=== PATIENT | female | born 2000 | race Caucasian/White ===

== ENCOUNTER 2019-01-05 15:39 | Emergency (ER) | payer OTHER ==
[~2019-01-05] VITALS: Ht 172.7 cm; Wt 99.3 kg
[2019-01-05] MEDS ORDERED: FAMOTIDINE 20 MG (PEPCID) TABLET PO STA (16:13)
[2019-01-05] MEDS ORDERED: LIDOCAINE 2% VISCOUS 15 ML UDC PO ONE (16:15)
[2019-01-05] MEDS ORDERED: ANTACID SUSP 30 ML UDC (MYLANTA) PO ONE (16:15)
--- NOTE | 2019-01-05 16:18 | ED Abdominal Pain ---
General Chief Complaint: Abdominal/GI Problems Stated Complaint: ABD PAIN Nursing Triage Note: pt arrived to ED with c/o abd cramping that started today before noon. Pt states she experiences cold chills while having the cramps. Pt has had a regular BM for the last week that is hard. Pt states the pain just continues to get worse Sepsis Screen: No Definite Risk Source of Information: Patient Exam Limitations: No Limitations History of Present Illness Date Seen by Provider: Jan 05, 2019 Time Seen by Provider: 15:59 Initial Comments Patient presents to ER by private conveyance with chief complaint of abdominal pain in the epigastric region described as cramping intermittent going on since about noon today, 4 hours ago. She has not tried taking anything for. History of GERD or gastritis. No history of EGD. She had a bowel movement earlier today that was normal formed. No nausea fever or sweats. She was at work and was complaining very bad about it and he insisted that she would get checked out. No history of abdominal surgeries, endometriosis. She doesn't history of PCO S and quit taking her metformin about a year ago because of side effects. She is not taking any medicines now nor she followed up with a primary care doctor for the past year. The pain started before eating. Her last period was in September. She has an Mirena IUD. Allergies and Home Medications Allergies Coded Allergies: No Known Drug Allergies (Unverified , 01/05/19) Patient Home Medication List Home Medication List Reviewed: Yes Review of Systems Review of Systems Constitutional: No chills, No diaphoresis EENTM: No Blurred Vision, No Double Vision Respiratory: Denies Cough, Denies Shortness of Air Cardiovascular: Denies Chest Pain, Denies Lightheadedness Gastrointestinal: See HPI; Denies Abdomen Distended; Abdominal Pain; Denies Constipated, Denies Diarrhea, Denies Nausea Genitourinary: Denies Burning, Denies Discharge, Denies Drainage Musculoskeletal: No back pain, No joint pain Psychiatric/Neurological: Denies Anxiety, Denies Depressed Past Qilmkyw-Pxgero-Ryzyga Hx Patient Social History Alcohol Use: Denies Use Recreational Drug Use: No Smoking Status: Never a Smoker Recent Foreign Travel: No Contact w/Someone Who Travel: No Recent Infectious Disease Expo: No Past Medical History Last Menstrual Period: Sep 10, 2018 HEAD OF QUALITY History: IUD Physical Exam Vital Signs Vital Signs - First Documented 01/05/19 15:49 Temp 98.5 Pulse 78 Resp 20 B/P (MAP) 145/85 (105) Pulse Ox 98 O2 Delivery Room Air Capillary Refill : Less Than 3 Seconds Height/Weight/BMI Height: 5'8.00" Weight: 219lbs. oz. 99.060437xe; BMI Method:Stated General Appearance: WD/WN, no apparent distress HEENT: PERRL/EOMI, pharynx normal Neck: non-tender, full range of motion, supple, normal inspection Respiratory: lungs clear, normal breath sounds, no respiratory distress, no accessory muscle use Cardiovascular: normal peripheral pulses, regular rate, rhythm Peripheral Pulses: 2+ Radial Pulses (R), 2+ Radial Pulses (L) Gastrointestinal: normal bowel sounds, soft, tenderness (mild epigastric tenderness.), other (no psoas sign or mesenteric signs) Progress/Results/Core Measures Results/Orders Lab Results Laboratory Tests Test 01/05/19 16:17 01/05/19 16:34 Range/Units Urine Color YELLOW Urine Clarity CLEAR Urine pH 8 5-9 Urine Specific [place] 1.010 L 1.016-1.022 Urine Protein 1+ H NEGATIVE Urine Glucose (UA) NEGATIVE NEGATIVE Urine Ketones NEGATIVE NEGATIVE Urine Nitrite NEGATIVE NEGATIVE Urine Bilirubin NEGATIVE NEGATIVE Urine Urobilinogen 1 NORMAL MG/DL Urine Leukocyte Esterase 1+ H NEGATIVE Urine RBC (Auto) NEGATIVE NEGATIVE Urine RBC NONE /HPF Urine WBC 0-2 /HPF Urine Squamous Epithelial Cells 5-10 /HPF Urine Crystals NONE /LPF Urine Bacteria NEGATIVE /HPF Urine Casts NONE /LPF Urine Mucus NEGATIVE /LPF Urine Culture Indicated NO White Blood Count 9.5 4.3-11.0 10^3/uL Red Blood Count 5.12 4.35-5.85 10^6/uL Hemoglobin 14.5 11.5-16.0 G/DL Hematocrit 44 35-52 % Mean Corpuscular Volume 85 80-99 FL Mean Corpuscular Hemoglobin 28 25-34 PG Mean Corpuscular Hemoglobin Concent 33 32-36 G/DL Red Cell Distribution Width 12.7 10.0-14.5 % Platelet Count 462 H 130-400 10^3/uL Mean Platelet Volume 9.5 7.4-10.4 FL Neutrophils (%) (Auto) 69 42-75 % Lymphocytes (%) (Auto) 19 12-44 % Monocytes (%) (Auto) 9 0-12 % Eosinophils (%) (Auto) 2 0-10 % Basophils (%) (Auto) 0 0-10 % Neutrophils # (Auto) 6.6 1.8-7.8 X 10^3 Lymphocytes # (Auto) 1.8 1.0-4.0 X 10^3 Monocytes # (Auto) 0.9 0.0-1.0 X 10^3 Eosinophils # (Auto) 0.2 0.0-0.3 10^3/uL Basophils # (Auto) 0.0 0.0-0.1 10^3/uL Sodium Level 145 135-145 MMOL/L Potassium Level 4.0 3.6-5.0 MMOL/L Chloride Level 109 H 98-107 MMOL/L Carbon Dioxide Level 21 21-32 MMOL/L Anion Gap 15 H 5-14 MMOL/L Blood Urea Nitrogen 16 7-18 MG/DL Creatinine 0.77 0.60-1.30 MG/DL Estimat Glomerular Filtration Rate > 60 BUN/Creatinine Ratio 21 Glucose Level 109 H 70-105 MG/DL Calcium Level 9.4 8.5-10.1 MG/DL Corrected Calcium 9.0 8.5-10.1 MG/DL Total Bilirubin 0.5 0.1-1.0 MG/DL Aspartate Amino Transf (AST/SGOT) 20 5-34 U/L Alanine Aminotransferase (ALT/SGPT) 28 0-55 U/L Alkaline Phosphatase 80 40-136 U/L C-Reactive Protein High Sensitivity 0.11 0.00-0.50 MG/DL Total Protein 7.7 6.4-8.2 GM/DL Albumin 4.5 3.2-4.5 GM/DL Lipase 24 8-78 U/L My Orders Orders - ИВАН URRUTIA Ua Culture If Indicated (01/05/19 16:12) Urine Bedside (01/05/19 16:12) Cbc With Automated Diff (01/05/19 16:12) Comprehensive Metabolic Panel (01/05/19 16:12) Hs C Reactive Protein (01/05/19 16:12) Lipase (01/05/19 16:12) Lidocaine 2% Viscous 15 Ml (Xylocaine Vi (01/05/19 16:15) Famotidine Tablet (Pepcid Tablet) (01/05/19 16:13) Antacid Suspension (Mylanta Suspension (01/05/19 16:15) Medications Given in ED Current Medications Medications Dose Ordered Sig/Osvaldo Route Start Time Stop Time Status Last Admin Dose Admin Al Hydrox/Mg Hydrox/Simethicone 30 ml ONCE ONCE PO 01/05/19 16:15 01/05/19 16:16 DC 01/05/19 16:30 30 ML Lidocaine HCl 15 ml ONCE ONCE PO 01/05/19 16:15 01/05/19 16:16 DC 01/05/19 16:30 15 ML Vital Signs/I&O 01/05/19 15:49 Temp 98.5 Pulse 78 Resp 20 B/P (MAP) 145/85 (105) Pulse Ox 98 O2 Delivery Room Air Blood Pressure Mean: 105 Progress Progress Note : Time: 16:17 Progress Note 4 hours of nonsurgical abdominal pain that is crampy and intermittent. Could be GERD/gastritis versus muscle likely beginning pancreatitis. She does not drink alcohol have a history of diabetes or hypertriglyceridemia. We'll check some basic labs including a lipase, CRP and give her a GI cocktail. We'll check a urinalysis and bedside . Departure Impression Primary Impression: GERD (gastroesophageal reflux disease) Qualified Codes: K21.9 - Gastro-esophageal reflux disease without esophagitis Disposition: 01 HOME, SELF-CARE Condition: Stable Departure-Patient Inst. Decision time for Depature: 17:23 Referrals: NO,LOCAL PHYSICIAN (PCP/Family) Primary Care Physician Patient Instructions: Acid Reflux (Gastroesophageal Reflux Disease), Adult (DC) , LOCAL PHYSICIAN LIST Add. Discharge Instructions: Start taking omeprazole one capsule daily for the next 4 weeks. If you have any more pain in your belly like this then you can try Tums, Rolaids , Mylanta, Maalox etc. If this is not treating your pain sufficiently that follow-up with your primary doctor for further evaluation. All discharge instructions reviewed with patient and/or family. Voiced understanding. Scripts Omeprazole (Omeprazole) 40 Mg Capsule. 40 MG PO DAILY for 30 Days, #30 CAP 0 Refills Prov: ИВАН URRUTIA 01/05/19 ИВАН URRUTIA Jan 05, 2019 16:18
[2019-01-05 16:23] LABS: BILIRUBIN,URINE NEGATIVE (NEGATIVE); CLARITY,URINE CLEAR; COLOR,URINE YELLOW; GLUCOSE, URINE (UA) NEGATIVE (NEGATIVE); KETONES,URINE NEGATIVE (NEGATIVE); LEUKOCYTE ESTERASE ,URINE 1+ (NEGATIVE); NITRITE,URINE NEGATIVE (NEGATIVE); PH,URINE 8 (5-9); PROTEIN,URINE 1+ (NEGATIVE); UROBILINOGEN,URINE 1 MG/DL (NORMAL)
[2019-01-05 16:30] LABS: BACTERIA,URINE NEGATIVE /HPF; WBC,URINE 0-2 /HPF
[2019-01-05 16:42] LABS: BASOPHILS % (AUTO) 0 % (0-10); EOSINOPHILS # (AUTO) 0.2 10^3/uL (0.0-0.3); EOSINOPHILS % (AUTO) 2 % (0-10); HEMATOCRIT 44 % (35-52); HEMOGLOBIN 14.5 G/DL (11.5-16.0); LYMPHOCYTES # (AUTO) 1.8 X 10^3 (1.0-4.0); LYMPHOCYTES % (AUTO) 19 % (12-44); MEAN CORPUSCULAR HEMOGLOBIN 28 PG (25-34); MEAN CORPUSCULAR HGB CONC 33 G/DL (32-36); MEAN CORPUSCULAR VOLUME 85 FL (80-99); MEAN PLATELET VOLUME 9.5 FL (7.4-10.4); MONOCYTES # (AUTO) 0.9 X 10^3 (0.0-1.0); MONOCYTES % (AUTO) 9 % (0-12); NEUTROPHILS # (AUTO) 6.6 X 10^3 (1.8-7.8); NEUTROPHILS % (AUTO) 69 % (42-75); PLATELET COUNT 462 10^3/uL (130-400); RED CELL DISTRIBUTION WIDTH 12.7 % (10.0-14.5); WHITE BLOOD COUNT 9.5 10^3/uL (4.3-11.0)
[2019-01-05 17:03] LABS: ALANINE AMINOTRANSFERASE 28 U/L (0-55); ALBUMIN 4.5 GM/DL (3.2-4.5); ALKALINE PHOSPHATASE 80 U/L (40-136); BILIRUBIN,TOTAL 0.5 MG/DL (0.1-1.0); BUN/CREATININE RATIO 21; CALCIUM 9.4 MG/DL (8.5-10.1); CARBON DIOXIDE 21 MMOL/L (21-32); CHLORIDE 109 MMOL/L (98-107); CREATININE SERUM 0.77 MG/DL (0.60-1.30); GFR ESTIMATED > 60; GLUCOSE 109 MG/DL (70-105); LIPASE 24 U/L (8-78); SODIUM 145 MMOL/L (135-145); TOTAL PROTEIN 7.7 GM/DL (6.4-8.2)
[2019-01-05] MEDS ORDERED: OMEP40CA36 PO (17:28)
[2019-01-05 17:34] VITALS: BP 128/83
== END 2019-01-05 17:45 | disposition home or self-care (01) ==
LOC: ER 15:41
DX: K21.9 Gastro-esophageal reflux disease without esophagitis (principal); Z87.19 Personal history of other diseases of the digestive system; Z97.5 Presence of (intrauterine) contraceptive device
CPT/HCPCS: 36415; 80053; 81000; 83690; 84703; 85025; 86141

== ENCOUNTER 2019-10-16 20:46 | Emergency (ER) | payer OTHER ==
[~2019-10-16] VITALS: Ht 170 cm; Wt 106.0 kg
[~2019-10-16 20:46] MED LIST: OMEP40CA27 PO
[2019-10-16 21:08] LABS: BILIRUBIN,URINE NEGATIVE (NEGATIVE); CLARITY,URINE CLOUDY; COLOR,URINE ORANGE; GLUCOSE, URINE (UA) 1+ (NEGATIVE); KETONES,URINE NEGATIVE (NEGATIVE); LEUKOCYTE ESTERASE ,URINE 2+ (NEGATIVE); NITRITE,URINE POSITIVE (NEGATIVE); PROTEIN,URINE 3+ (NEGATIVE)
[2019-10-16 21:24] LABS: RBC,URINE >100 /HPF; WBC,URINE 25-50 /HPF
--- NOTE | 2019-10-16 21:24 | ED GU-Female ---
General Chief Complaint: - Urinary Stated Complaint: PAIN WITH URINATION Source: patient Exam Limitations: no limitations History of Present Illness Date Seen by Provider: Oct 16, 2019 Time Seen by Provider: 21:10 Initial Comments Patient resents to ER by private conveyance with her friend and chief complaint that for the past several days she's been having progressively worsening dysuria without discharge. She noticed after taking AZO that her urine was blood tinged. She did not see anyone else and has not started antibiotics. She can offer. Sunday, 4 days ago which lasted about 7 days. She has PCO S. She is not on control. She is having no fevers, abdominal pain nausea or vomiting. She rates her pain as a 12 out of 10. She has taken nothing else besides the AZO. She is sexually active with men and has no history of STI. She denies discharge. Allergies and Home Medications Allergies Coded Allergies: No Known Drug Allergies (Unverified , 01/05/19) Home Medications Omeprazole 40 Mg Capsule.dr, 40 MG PO DAILY Prescribed by: ИВАН URRUTIA on 01/05/19 [id number] Patient Home Medication List Home Medication List Reviewed: Yes Review of Systems Review of Systems Constitutional: No chills, No diaphoresis EENTM: No ear discharge, No ear pain Respiratory: No cough, No short of breath Cardiovascular: No chest pain, No edema Gastrointestinal: No abdominal pain, No nausea, No vomiting Genitourinary: burning; denies discharge; dysuria; denies frequency, denies flank pain Musculoskeletal: No back pain, No joint pain Skin: No pruritus, No rash Past Mlffdde-Vzewuq-Nmqfsp Hx Patient Social History Alcohol Use: Denies Use Recreational Drug Use: No Smoking Status: Never a Smoker Recent Foreign Travel: No Contact w/Someone Who Travel: No Recent Hopitalizations: No Immunizations Up To Date Tetanus Booster (TDap): Less than 5yrs Seasonal Allergies Seasonal Allergies: No Past Medical History Surgeries: Yes Adenoidectomy, Tonsillectomy Respiratory: No Cardiac: No Neurological: No FISHER TERRAPIN History: IUD Genitourinary: No Gastrointestinal: No Musculoskeletal: No Endocrine: No HEENT: Yes Chronic Eye Infection Cancer: No Psychosocial: No Integumentary: No Physical Exam Vital Signs Vital Signs - First Documented 10/16/19 20:53 Temp 37.1 Pulse 94 Resp 18 B/P (MAP) 149/92 (111) O2 Delivery Room Air Capillary Refill : Height, Weight, BMI Height: 5'8.00" Weight: 219lbs. oz. 99.199552pg; BMI Method:Stated General Appearance: WD/WN, no apparent distress HEENT: PERRL/EOMI, normal ENT inspection, pharynx normal Cardiovascular: normal peripheral pulses, regular rate, rhythm Respiratory: no respiratory distress, no accessory muscle use Gastrointestinal: non tender, soft Neurologic/Psychiatric: normal mood/affect, oriented x 3 Skin: normal color, warm/dry Progress/Results/Core Measures Suspected Sepsis SIRS Temperature: Pulse: Respiratory Rate: Blood Pressure / Mean: Results/Orders Lab Results Laboratory Tests Test 10/16/19 21:00 Range/Units Urine Color ORANGE Urine Clarity CLOUDY Urine pH 7.0 5-9 Urine Specific [place] 1.025 H 1.016-1.022 Urine Protein 3+ H NEGATIVE Urine Glucose (UA) 1+ H NEGATIVE Urine Ketones NEGATIVE NEGATIVE Urine Nitrite POSITIVE H NEGATIVE Urine Bilirubin NEGATIVE NEGATIVE Urine Urobilinogen 4.0 < = 1.0 MG/DL Urine Leukocyte Esterase 2+ H NEGATIVE Urine RBC (Auto) 3+ H NEGATIVE Urine RBC >100 H /HPF Urine WBC 25-50 H /HPF Urine Crystals NONE /LPF Urine Bacteria MODERATE H /HPF Urine Casts NONE /LPF Urine Mucus NEGATIVE /LPF Urine Culture Indicated YES My Orders Orders - ИВАН URRUTIA Ua Culture If Indicated (10/16/19 20:49) Urine Bedside (10/16/19 20:49) Ketorolac Injection (Toradol Injection) (10/16/19 21:30) Neis Rafiq Dna Urine Test (10/16/19 21:17) Chlamydia Trachomatis Urine (10/16/19 21:17) Urine Culture (10/16/19 21:00) Medications Given in ED Current Medications Medications Dose Ordered Sig/Osvaldo Route Start Time Stop Time Status Last Admin Dose Admin Ketorolac Tromethamine 60 mg ONCE ONCE IM 10/16/19 21:30 10/16/19 21:31 DC 10/16/19 21:49 60 MG Vital Signs/I&O 10/16/19 20:53 Temp 37.1 Pulse 94 Resp 18 B/P (MAP) 149/92 (111) O2 Delivery Room Air Capillary Refill : Progress Note : Time: 21:20 Progress Note Follow-up patient reports 12 out of 10 pain she is smiling, giggling and interactive. We have offered Toradol which she accepted. We'll get a urinalysis. We have offered to do STD testing and she has consented. Departure Impression Primary Impression: Urinary tract infection Qualified Codes: N30.01 - Acute cystitis with hematuria Disposition: HOME, SELF-CARE Condition: Stable Departure-Patient Inst. Decision time for Depature: 22:01 Referrals: NO,LOCAL PHYSICIAN (PCP/Family) Primary Care Physician Patient Instructions: Urinary Tract Infection, Adult (DC) Add. Discharge Instructions: We will call you if the STD testing is positive. Drink lots of fluids. Caffeine is okay. If you're not seeing improvement in your symptoms in 3-4 days then you may follow-up with primary care. Tylenol 1000 g every 8 hours as needed for pain. Ibuprofen 800 mg every 8 hours as needed for pain. Bactrim DS one tablet twice a day with food for 7 days. All discharge instructions reviewed with patient and/or family. Voiced understanding. Scripts Sulfamethoxazole/Trimethoprim (Bactrim Ds Tablet) 1 Each Tablet 1 EACH PO BID for 7 Days, #14 TAB 0 Refills Prov: ИВАН URRUTIA 10/16/19 Work/School Note: Work Release Form Date Seen in the Emergency Department: Oct 16, 2019 Return to Work: Oct 17, 2019 Restrictions: No Restrictions ИВАН URRUTIA Oct 16, 2019 21:23
[2019-10-16 21:25] LABS: BACTERIA,URINE MODERATE /HPF
[2019-10-16] MEDS ORDERED: KETOROLAC 60 MG/2 ML VIAL IM ONE (21:30)
[2019-10-16] MEDS ORDERED: SULF1TAB35 PO (22:02)
[2019-10-16 22:11] VITALS: BP 138/90
== END 2019-10-16 22:12 | disposition home or self-care (01) ==
LOC: EDUNIT# 20:46 → ER 20:47
DX: N39.0 Urinary tract infection, site not specified (principal)
CPT/HCPCS: 36415; 81000; 84703; 87077; 87088; 87186; 87491; 87591; 96372; 99284

== ENCOUNTER 2020-06-25 19:06 | Emergency (ER) | payer OTHER ==
[~2020-06-25] VITALS: Ht 170 cm; Wt 112.7 kg
[~2020-06-25 19:06] MED LIST changes: +SULF1TAB35 PO
[2020-06-25 19:11] VITALS: BP 141/94
[2020-06-25 19:29] LABS: BILIRUBIN,URINE NEGATIVE (NEGATIVE); CLARITY,URINE CLEAR; COLOR,URINE YELLOW; GLUCOSE, URINE (UA) NEGATIVE (NEGATIVE); KETONES,URINE NEGATIVE (NEGATIVE); LEUKOCYTE ESTERASE ,URINE NEGATIVE (NEGATIVE); NITRITE,URINE NEGATIVE (NEGATIVE); PH,URINE 6.5 (5-9); PROTEIN,URINE NEGATIVE (NEGATIVE)
--- NOTE | 2020-06-25 19:32 | ED Back Pain ---
General Chief Complaint: Back Problems Stated Complaint: LOW BACK PAIN Nursing Triage Note: c/o right flank pain x4 days. denies injury, gi/gu complaints. Nursing Sepsis Screen: No Definite Risk Source of Information: Patient History of Present Illness Date Seen by Provider: Jun 25, 2020 Time Seen by Provider: 19:18 Initial Comments PT ARRIVES VIA POV FROM HOME C/O RIGHT LOWER BACK/FLANK PAIN X 4 DAYS PAIN IS CONSTANT, WORSE WITH LAYING DOWN NOTHING IMPROVES PAIN--TOOK IBUPROFEN X 2 DAYS, AND ALEVE X 2 DAYS--MINIMAL RELIEF NO RADIATION OF PAIN NO PARESTHESIAS OR MOTOR DEFICITS NO NAUSEA/VOMITING--HAS BEEN EATING AND DRINKING USUAL NO FEVER NO DYSURIA OR URGENCY OR FREQUENCY, HAS HAD DECREASED OUTPUT. AND TODAY HAD TINGE OF BLOOD ON TISSUE WITH WIPING--NOT SURE IF URINARY OR VAGINAL SOURCE NO INJURY OR UNUSUAL ACTIVITY NO HISTORY OF SIMILAR SYMPTOMS NO DIFFERENT TODAY HAS NOT SOUGHT CARE UNTIL TODAY LMP--ENDED 1 WEEK AGO. HAS NEXPLANON Other Comments PCP: DR. Naeem SIMON Allergies and Home Medications Allergies Coded Allergies: tramadol (Verified Allergy, Unknown, 06/25/20) Patient Home Medication List Home Medication List Reviewed: Yes Review of Systems Constitutional: no symptoms reported Respiratory: no symptoms reported Cardiovascular: no symptoms reported Gastrointestinal: no symptoms reported; No abdominal pain, No loss of appetite, No nausea, No vomiting Genitourinary: see HPI; No dysuria, No frequency : No LMP: Jun 18, 2020 Control/STD Prophylaxis: Other (NEXPLANON) Musculoskeletal: see HPI, back pain Skin: no symptoms reported Psychiatric/Neurological: No Symptoms Reported Past Vqisoaa-Lpltmi-Sslwhl Hx Past Med/Social Hx: Reviewed and Corrections made Patient Social History Alcohol Use: Rarely Uses Recreational Drug Use: No Smoking Status: Never a Smoker 2nd Hand Smoke Exposure: No Recent Foreign Travel: No Contact w/Someone Who Travel: No Recent Infectious Disease Expo: No Recent Hopitalizations: No Immunizations Up To Date Tetanus Booster (TDap): Less than 5yrs Seasonal Allergies Seasonal Allergies: No Past Medical History Surgeries: Yes (T&A X2; BMT'S X2; L EARDRUM RECONSTRUCTION X 2) Adenoidectomy, Ear Surgery, Tonsillectomy Respiratory: No Cardiac: No Neurological: No : No (b.c. implant) Last Menstrual Period: Jun 18, 2020 Reproductive Disorders: Yes Female Reproductive Disorders: Polycystic Ovarian Dis Genitourinary: No Gastrointestinal: No Musculoskeletal: No Endocrine: Yes (HYPERGLYCEMIA; PCOS) HEENT: Yes (T&A X 2; BMT'S X2; L EARDRUM RECONSTRUCTION X 2) Chronic Ear Infection, Tonsilitis Cancer: No Psychosocial: No Integumentary: No Blood Disorders: No Physical Exam Vital Signs Vital Signs - First Documented 06/25/20 19:11 Temp 36.4 Pulse 81 Resp 16 B/P (MAP) 141/94 (110) Pulse Ox 100 O2 Delivery Room Air Capillary Refill : Less Than 3 Seconds Height, Weight, BMI Height: 5'8.00" Weight: 219lbs. oz. 99.374400wk; 38.00 BMI Method:Stated General Appearance: No Apparent Distress, WD/WN, Obese, Other (WALKS UPRIGHT AND MOVES WITHOUT DIFFICULTY) Cardiovascular: Regular Rate, Rhythm, No Murmur Respiratory: Normal Breath Sounds Gastrointestinal: Non Tender, Soft Back: Other (TENDERNESS OVER RIGHT SI JOINT. MILD RIGHT LUMBAR PARAVERTEBRAL MUSCLE SPASMS) Extremity: Normal Inspection Neurologic/Psychiatric: Alert, Oriented x3, No Motor/Sensory Deficits, Normal Mood/Affect, cross tie cutter II-XII Norm as Tested Skin: Normal Color, Warm/Dry; No Rash Progress/Results/Core Measures Results/Orders Lab Results Laboratory Tests Test 06/25/20 19:16 Range/Units Urine Color YELLOW Urine Clarity CLEAR Urine pH 6.5 5-9 Urine Specific [place] 1.020 1.016-1.022 Urine Protein NEGATIVE NEGATIVE Urine Glucose (UA) NEGATIVE NEGATIVE Urine Ketones NEGATIVE NEGATIVE Urine Nitrite NEGATIVE NEGATIVE Urine Bilirubin NEGATIVE NEGATIVE Urine Urobilinogen 0.2 < = 1.0 MG/DL Urine Leukocyte Esterase NEGATIVE NEGATIVE Urine RBC (Auto) NEGATIVE NEGATIVE Urine RBC NONE /HPF Urine WBC NONE /HPF Urine Squamous Epithelial Cells 25-50 H /HPF Urine Crystals NONE /LPF Urine Bacteria NEGATIVE /HPF Urine Casts NONE /LPF Urine Mucus NEGATIVE /LPF Urine Culture Indicated NO My Orders Orders - SAHARA JONES DO Urine Bedside (06/25/20 19:18) Ua Culture If Indicated (06/25/20 19:18) Vital Signs/I&O 06/25/20 19:11 Temp 36.4 Pulse 81 Resp 16 B/P (MAP) 141/94 (110) Pulse Ox 100 O2 Delivery Room Air Blood Pressure Mean: 110 Departure Impression Primary Impression: Right low back pain Additional Impression: Pain of right sacroiliac joint Disposition: HOME, SELF-CARE Condition: Stable Departure-Patient Inst. Referrals: KEYSHA SIMON MD (PCP) Primary Care Physician NO,LOCAL PHYSICIAN (Family) Primary Care Physician Patient Instructions: Low Back Pain (DC), Sacroiliac Joint Pain Add. Discharge Instructions: MOIST HEAT TO SORE AREA AT 20 MINUTE INTERVALS NO LIFTING OVER 5 LBS, NO TWISTING OR BENDING AT WAIST FOLLOW UP WITH YOUR DR IN 3-4 DAYS FOR FURTHER CARE All discharge instructions reviewed with patient and/or family. Voiced understanding. Scripts Cyclobenzaprine HCl (Cyclobenzaprine HCl) 10 Mg Tablet 10 MG PO Q8H PRN for SPASMS, #15 TAB 0 Refills Prov: SAHARA JONES DO 06/25/20 Methylprednisolone (Medrol) 4 Mg Tab.ds.pk 4 MG PO UD for 6 Days, #21 PKG PER DOSE PACK INSTRUCTIONS Prov: SAHARA JONES DO 06/25/20 SAHARA JONES DO Jun 25, 2020 19:32
[2020-06-25 19:37] LABS: BACTERIA,URINE NEGATIVE /HPF; SQUAMOUS EPITHELIAL CELL,UR 25-50 /HPF
[2020-06-25] MEDS ORDERED: METH4TAB PO (19:46)
[2020-06-25] MEDS ORDERED: CYCL10TA9 PO (19:46)
== END 2020-06-25 19:48 | disposition home or self-care (01) ==
LOC: EDUNIT# 19:06 → ER 19:07
DX: M54.5 Low back pain (principal); M53.3 Sacrococcygeal disorders, not elsewhere classified; E66.9 Obesity, unspecified; Z68.38 Body mass index [BMI] 38.0-38.9, adult; Z88.5 Allergy status to narcotic agent
CPT/HCPCS: 81000; 84703; 99282

== ENCOUNTER 2020-09-01 01:43 | Emergency (ER) | payer OTHER ==
[~2020-09-01 01:43] MED LIST changes: +CYCL10TA9 PO; +METH4TAB PO
[2020-09-01] MEDS ORDERED: RT-ALBUINH IH (02:27)
[2020-09-01] MEDS ORDERED: BENZ100C18 PO (02:27)
[2020-09-01] MEDS ORDERED: ONDA4TAB11 PO (02:27)
--- NOTE | 2020-09-01 02:28 | ED Respiratory ---
General Chief Complaint: Respiratory Problems Stated Complaint: SOB,COVID+ Nursing Triage Note: PT AMBULATES TO ROOM #10 WITH C/O SOA, COUGH, ET HEADACHE. 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 INITIAL PULSE RATE 99% VIA RA. A&OX4. Source: patient Exam Limitations: no limitations History of Present Illness Date Seen by Provider: Sep 01, 2020 Time Seen by Provider: 02:08 Initial Comments Patient presents ER by private conveyance from home with chief complaint she just awoke from sleep gasping for air feeling short of air. She was diagnosed with Covid on Sunday, 2 days ago. She is started having symptoms 5 days ago on Sunday. She follows at [facility]. She does not have a history of lung disease nor does she smoke. She denies any recreational drugs. She is not having any shortness of air at this time. She says she just wanted to be checked out. She is not having any pain other than a headache. She denies nausea. She has Nexplanon Allergies and Home Medications Allergies Coded Allergies: tramadol (Verified Allergy, Unknown, 06/25/20) Home Medications Albuterol Sulfate 1 Puff Puff, 2 PUFF IH Q4H PRN for COUGH 1 PUFF = 90 MCG Prescribed by: ИВАН URRUTIA on 09/01/20226 Benzonatate 100 Mg Capsule, 100 MG PO Q6H PRN for COUGH Prescribed by: ИВАН URRUTIA on 09/01/20226 Cyclobenzaprine HCl 10 Mg Tablet, 10 MG PO Q8H PRN for SPASMS Prescribed by: SAHARA JONES on 06/25/201945 Methylprednisolone 4 Mg Tab.ds.pk, 4 MG PO UD PER DOSE PACK INSTRUCTIONS Prescribed by: SAHARA JONES on 06/25/201945 Ondansetron 4 Mg Tab.rapdis, 4 MG PO Q6H PRN for NAUSEA/VOMITING Prescribed by: ИВАН URRUTIA on 09/01/20226 Patient Home Medication List Home Medication List Reviewed: Yes Review of Systems Review of Systems Constitutional: No chills, No fever; malaise EENTM: No ear pain, No eye pain Respiratory: cough, short of breath, wheezing Cardiovascular: No edema, No Hx of Intervention, No palpitations Gastrointestinal: No abdominal pain, No nausea, No vomiting Genitourinary: No discharge, No dysuria Musculoskeletal: No back pain, No joint pain All Other Systems Reviewed Negative Unless Noted: Yes Past Ejbybwg-Lrgxfw-Wuziux Hx Patient Social History Alcohol Use: Rarely Uses Number of Drinks Today: 0 Recreational Drug Use: No Smoking Status: Never a Smoker 2nd Hand Smoke Exposure: No Recent Foreign Travel: No Contact w/Someone Who Travel: No Recent Infectious Disease Expo: No Recent Hopitalizations: No Immunizations Up To Date Tetanus Booster (TDap): Less than 5yrs Seasonal Allergies Seasonal Allergies: No Past Medical History Surgeries: Yes (T&A X2; BMT'S X2; L EARDRUM RECONSTRUCTION X 2) Adenoidectomy, Ear Surgery, Tonsillectomy Respiratory: No Cardiac: No Neurological: No Reproductive Disorders: Yes Female Reproductive Disorders: 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 oz. 99.636912at; BMI Method:Stated General Appearance: WD/WN, no apparent distress Eyes: Bilateral Eye Normal Inspection, Bilateral Eye PERRL, Bilateral Eye EOMI HEENT: PERRL/EOMI, normal ENT inspection, TMs normal, pharynx normal Neck: non-tender, full range of motion, supple, normal inspection Respiratory: chest non-tender, lungs clear, normal breath sounds, no respiratory distress, no accessory muscle use Cardiovascular: normal peripheral pulses, regular rate, rhythm Neurologic/Psychiatric: alert, normal mood/affect, oriented x 3 Skin: normal color, warm/dry Progress/Results/Core Measures Suspected Sepsis Recent Fever Within 48 Hours: No Infection Criteria Present: Documented Infection New/Unexplained Altered Menta: No Sepsis Screen: No Definite Risk SIRS Temperature: Pulse: 97 Respiratory Rate: 18 Blood Pressure 128 /95 Mean: 106 Results/Orders Micro Results Microbiology 09/01/20 Influenza Types A,B Antigen (KISHORE) - Final, Complete My Orders Orders - ИВАН URRUTIA Ketorolac Injection (Toradol Injection) (09/01/20 02:30) Chest 1 View, Ap/Pa Only (09/01/20 02:19) Influenza A And B Antigens (09/01/20 02:19) Medications Given in ED Current Medications Medications Dose Ordered Sig/Osvaldo Route Start Time Stop Time Status Last Admin Dose Admin Ketorolac Tromethamine 60 mg ONCE ONCE IM 09/01/20 02:30 09/01/20 02:31 DC 09/01/20 02:29 60 MG Vital Signs/I&O 09/01/20 02:10 Temp 36.9 Pulse 97 Resp 18 B/P (MAP) 128/95 (106) Pulse Ox 99 O2 Delivery Room Air Capillary Refill : Less Than 3 Seconds Blood Pressure Mean: 106 Progress Note : Time: 02:27 Progress Note Aseptic vital signs with oxygen sats 98 to 100% on room air with nonlabored breathing. Plan to get a basic chest x-ray to rule out significant pathology. We will give her a shot of Toradol for her headache and scripts for some symptomatic medicines. Return precautions were discussed. Patient is okay with this plan. We will test her for influenza. Diagnostic Imaging Diagonstic Imaging: Xray Plain Films/CT/US/NM/MRI: chest Comments No acute cardiopulmonary process Reviewed: Reviewed by Me Departure Impression Primary Impression: COVID-19 Additional Impression: Headache Qualified Codes: G44.209 - Tension-type headache, unspecified, not intractable Disposition: 01 HOME, SELF-CARE Condition: Stable Departure-Patient Inst. Decision time for Depature: 03:01 Referrals: KEYSHA SIMON MD (PCP/Family) Primary Care Physician Patient Instructions: Headache, Adult, Coronavirus Disease 2019 (COVID-19) Overview Add. Discharge Instructions: Drink plenty of fluids. Tylenol and ibuprofen as necessary for pain or body aches. Return to the ER for worsening shortness of air or other worrisome symptoms. 2 puffs of albuterol/ProAir every 4 hours as necessary for shortness of air or wheezing. Tessalon Perles 1 capsule every 6 hours as necessary for cough. Ondansetron 1 tablet every 6 hours as necessary for nausea and/or vomiting. All discharge instructions reviewed with patient and/or family. Voiced understanding. Scripts Benzonatate (TESSALON PERLES) 100 Mg Capsule 100 MG PO Q6H PRN for COUGH, #30 CAP 0 Refills Prov: ИВАН URRUTIA 09/01/20 Albuterol Sulfate (PROAIR HFA) 1 Puff Puff 2 PUFF IH Q4H PRN for COUGH, #1 EA 0 Refills 1 PUFF = 90 MCG Prov: ИВАН URRUTIA 09/01/20 Ondansetron (Ondansetron Odt) 4 Mg Tab.rapdis 4 MG PO Q6H PRN for NAUSEA/VOMITING, #8 TAB 0 Refills Prov: ИВАН URRUTIA 09/01/20 ИВАН URRUTIA Sep 01, 2020 02:28
[2020-09-01] MEDS ORDERED: KETOROLAC 60 MG/2 ML VIAL IM ONE (02:30)
[2020-09-01 03:12] VITALS: BP 122/81
--- NOTE | 2020-09-01 06:01 | Diagnostic Imaging Report ---
Indication: Dyspnea, cough and congestion COMPARISON: No previous study is available for comparison at this time. FINDINGS: Heart size and pulmonary vasculature are within normal limits, and the lungs are clear, bilaterally. IMPRESSION: Unremarkable chest. Dictated by: Dictated on workstation # [id number]
== END 2020-09-01 03:14 | disposition home or self-care (01) ==
LOC: EDUNIT# 01:43 → ER 01:47
DX: U07.1 COVID-19 (principal); Z88.5 Allergy status to narcotic agent; Z79.52 Long term (current) use of systemic steroids
CPT/HCPCS: 71045; 87804